=== PATIENT | female | born 1955 | race Caucasian/White ===

== ENCOUNTER → 2021-07-15 | Day surgery (SDC) | payer OTHER ==
[~2021-07-15] VITALS: Ht 165.1 cm; Wt 65.8 kg
[~2021-07-15] MED LIST: ACTONEL5 MG PO; BIOTIN5000 MCG PO; CALTRATE 600 +1 EAC1 PO; COCONUT OIL1000 MG PO; CRESTOR20 MG PO; CYCLOBENZAPRINE10 MG PO; FLAX SEED OIL1 EACH PO; MOBIC7.5 MG PO; PAXIL20 MG PO; VITAMIN E180 M1 PO
[2021-07-15 07:51] LABS: HCT 43.9 % (37.0-47.0); HGB 14.7 g/dl (12.5-16.0); MCH 31.8 pg (25.0-31.0); MCHC 33.5 g/dL (32.0-36.0); MPV 9.3 fL (6.0-9.5); RBC 4.62 M/uL (4.20-5.40); RDW 12.1 % (11.5-14.0); WBC 8.5 K/uL (4.0-10.5)
[2021-07-15 08:05] LABS: ALBUMIN 4.4 g/dL (3.4-5.0); BILIRUBIN - TOTAL 0.4 mg/dL (0.2-1.0); BUN/CREAT RATIO (CALC) 17.9 RATIO; CREATININE 0.67 mg/dL (0.51-0.95); GLOBULIN (CALCULATION) 2.9 g/dL; TOTAL PROTEIN 7.3 g/dL (6.4-8.2)
== END | disposition home or self-care (01) ==
LOC: FAS 07:16
PROVIDERS: Surgery
DX: Z12.11 Encounter for screening for malignant neoplasm of colon (principal); K62.1 Rectal polyp; Z79.899 Other long term (current) drug therapy
CPT/HCPCS: 36415; 80053; J1610; J7120